=== PATIENT | male | born 1970 | race Caucasian/White ===

== ENCOUNTER 2024-04-01 12:22 | Inpatient (IN) | payer OTHER ==
[2024-04-01 13:11] VITALS: BMI 27.1
[2024-04-01] MEDS ORDERED: NALOXONE (NARCAN) HCL 4 MG/0.1 ML SPRAY NS PRN (14:17)
[2024-04-01] MEDS ORDERED: LOPERAMIDE HCL 2 MG CAPSULE PO PRN (14:17)
[2024-04-01] MEDS ORDERED: BENZOCAINE/MENTHOL (CHLORASEPTIC ) LOZENGE MM PRN (14:17)
[2024-04-01] MEDS ORDERED: DICYCLOMINE HCL 10 MG CAPSULE PO PRN (14:17)
[2024-04-01] MEDS ORDERED: guaiFENesin 600 MG TABLET.ER (FP) PO PRN (14:17)
[2024-04-01] MEDS ORDERED: NALOXONE (NYS OPIOID OVERDOSE PROGRAM) 4 MG/0.1 ML SPRAY NS PRN (14:17)
[2024-04-01] MEDS ORDERED: BISMUTH SUBSALICYLATE 524 MG/30 ML PO PRN (14:17)
[2024-04-01] MEDS ORDERED: NICOTINE 21 MG/24 HOURS TOPICAL PATCH TD PRN (14:17)
[2024-04-01] MEDS ORDERED: POLYETHYLENE GLYCOL (HEALTHYLAX) 3350 17 GM PACKET PO PRN (14:17)
[2024-04-01] MEDS ORDERED: ACETAMINOPHEN 325 MG TABLET (FP) PO PRN (14:17)
[2024-04-01] MEDS ORDERED: MAG HYDROX/AL HYDROX/SIMETH 30 ML UNIT-DOSE CUP PO PRN (14:17)
[2024-04-01] MEDS ORDERED: BENZONATATE 200 MG CAPSULE PO PRN (14:17)
[2024-04-01] MEDS ORDERED: NICOTINE POLACRILEX 4 MG GUM BUC ONE (15:12)
[2024-04-01] MEDS: NICOTINE POLACRILEX 4 MG GUM BUC PRN (15:13)
[2024-04-01] MEDS ORDERED: IBUPROFEN 400 MG TABLET (FP) PO ONE (15:32)
[2024-04-01] MEDS: IBUPROFEN 400 MG TABLET (FP) PO PRN (15:34)
[2024-04-01] MEDS ORDERED: chlordiazePOXIDE HCL 25 MG CAPSULE ONE (16:01)
[2024-04-01] MEDS: chlordiazePOXIDE HCL 25 MG CAPSULE PO SCH (16:06)
[2024-04-01] MEDS: METHOCARBAMOL 500 MG TABLET PO PRN (17:30)
[2024-04-01] MEDS: chlordiazePOXIDE HCL 25 MG CAPSULE PO PRN (19:38)
[2024-04-01] MEDS: QUEtiapine FUMARATE 100 MG TABLET (FP) PO ONE (22:03)
[2024-04-01] MEDS: THIAMINE 100 MG TABLET PO SCH (22:03)
[2024-04-01] MEDS: MELATONIN 5 MG TABLETS PO SCH (22:03)
[2024-04-01] MEDS: FLU VACCINE (FLULAVAL) PF 45 MCG/0.5 ML SYRINGE 2024-2025 IM ONE (22:04)
[2024-04-02] MEDS: methaDONE 40 MG, methaDONE 30 MG PO ONE (05:50)
[2024-04-02] MEDS: PRENATAL VITAMINS W/ FOLIC ACID TABLET (FP) PO SCH (10:11)
[2024-04-02] MEDS ORDERED: ESCITALOPRAM OXALATE 10 MG TABLET ONE (13:04)
[2024-04-02] MEDS: ESCITALOPRAM OXALATE 20 MG TABLET PO SCH (13:10)
[2024-04-02] MEDS: diazePAM 5 MG TABLET PO SCH (17:02)
[2024-04-02] MEDS: MAGNESIUM HYDROX 2400MG/30ML ORAL SUSPENSION 30 ML CUP PO PRN (18:31)
[2024-04-02] MEDS: diazePAM 5 MG TABLET PO PRN (20:06)
[2024-04-02] MEDS: ALBUTEROL SO4 HFA INHALER IH PRN (20:10)
[2024-04-02] MEDS: MIRTAZAPINE 15 MG TABLET (FP) PO SCH (22:30)
[2024-04-02] MEDS: QUEtiapine FUMARATE 200 MG TABLET PO SCH (22:30)
[2024-04-03] MEDS ORDERED: chlordiazePOXIDE HCL 25 MG CAPSULE PO SCH (05:00)
[2024-04-03] MEDS: methaDONE HCL 10 MG TABLET (FOR DETOX USE ONLY) PO ONE (05:34)
[2024-04-03] MEDS ORDERED: ESCITALOPRAM OXALATE 10 MG TABLET ONE (10:26)
[2024-04-03] MEDS: GABAPENTIN 300 MG CAPSULE PO SCH (22:02)
[2024-04-04] MEDS ORDERED: chlordiazePOXIDE HCL 10 MG CAPSULE PO PRN
[2024-04-04] MEDS ORDERED: chlordiazePOXIDE HCL 10 MG CAPSULE PO SCH (05:00)
[2024-04-04] MEDS: diazePAM 5 MG TABLET PO SCH (05:33)
[2024-04-04] MEDS: methaDONE HCL 40 MG DISPERSABLE TABLET PO ONE (05:33)
[2024-04-04] MEDS ORDERED: methaDONE 40 MG, methaDONE 10 MG PO ONE (06:00)
[2024-04-04] MEDS ORDERED: methaDONE HCL 10 MG TABLET PO PRN (06:00)
[2024-04-04] MEDS ORDERED: ESCITALOPRAM OXALATE 10 MG TABLET ONE (09:07)
[2024-04-04] MEDS: BUPRENORPHINE/NALOXONE 0.5 MG/0.125 MG FILM SL ONE ×2 (09:10→22:40)
[2024-04-05] MEDS ORDERED: chlordiazePOXIDE HCL 10 MG CAPSULE PO SCH (05:00)
[2024-04-05] MEDS: diazePAM 5 MG TABLET PO SCH (05:50)
[2024-04-05] MEDS ORDERED: methaDONE HCL 40 MG DISPERSABLE TABLET PO ONE (06:00)
[2024-04-05] MEDS ORDERED: ESCITALOPRAM OXALATE 10 MG TABLET ONE (10:03)
[2024-04-05] MEDS: BUPRENORPHINE/NALOXONE 0.5 MG/0.125 MG FILM SL SCH (10:05)
[2024-04-05] MEDS: diazePAM 5 MG TABLET PO PRN (12:40)
[2024-04-05] MEDS: IBUPROFEN 600 MG TABLET (FP) PO PRN (17:16)
[2024-04-06] MEDS ORDERED: chlordiazePOXIDE HCL 10 MG CAPSULE PO ONE (05:00)
[2024-04-06] MEDS: diazePAM 5 MG TABLET PO ONE (05:50)
[2024-04-06] MEDS ORDERED: ESCITALOPRAM OXALATE 10 MG TABLET ONE (09:27)
[2024-04-06] MEDS: BUPRENORPHINE/NALOXONE 2 MG/0.5 MG FILM PACKET SL SCH (09:30)
[2024-04-06] MEDS: amLODIPine BESYLATE 10 MG TABLET (FP) PO SCH (09:45)
[2024-04-06] MEDS: BUPRENORPHINE/NALOXONE 2 MG/0.5 MG FILM PACKET SL ONE (12:08)
[2024-04-06] MEDS: diazePAM 5 MG TABLET PO PRN (14:50)
[2024-04-06 15:45] LABS: POTASSIUM 4.5 mmol/L (3.5-5.1)
[2024-04-06 16:00] LABS: CALCIUM 8.9 mg/dL (8.5-10.1)
[2024-04-06 16:01] LABS: BLOOD UREA NITROGEN 10.3 mg/dL (7-18)
[2024-04-06 16:04] LABS: CREATININE 0.9 mg/dL (0.55-1.3)
[2024-04-06] MEDS: cloNIDine HCL 0.1 MG TABLET PO PRN (17:46)
[2024-04-07] MEDS: diazePAM 5 MG TABLET PO PRN (06:37)
[2024-04-07] MEDS ORDERED: ESCITALOPRAM OXALATE 10 MG TABLET ONE (09:36)
[2024-04-07] MEDS: BUPRENORPHINE/NALOXONE 4 MG/1 MG FILM PACKET SL SCH (09:38)
[2024-04-07 17:37] LABS: BASO % 0.8 % (0-2.0); EOS % 4.3 % (0-4.5); HEMATOCRIT 43.2 % (35.4-49); HEMOGLOBIN 14.3 GM/dL (11.7-16.9); LYMPH % 29.2 % (8-40); MCH 30.2 pg (25.7-33.7); MEAN CELL VOLUME 91.5 fl (80-96); MEAN PLT VOLUME 8.1 fl (7.5-11.1); MONO % 6.7 % (3.8-10.2); PLATELET COUNT 364 10^3/uL (134-434); RBC 4.72 M/mm3 (4.00-5.60); RDW 15.7 % (11.9-15.9); WHITE BLOOD COUNT 9.2 K/mm3 (4.0-10.0)
[2024-04-07] MEDS: ONDANSETRON *ODT* 4 MG TABLET SL PRN (22:02)
[2024-04-08] MEDS ORDERED: ESCITALOPRAM OXALATE 10 MG TABLET ONE (09:19)
[2024-04-08] MEDS: BUPRENORPHINE/NALOXONE 8 MG/2 MG FILM PACKET SL SCH (09:23)
[2024-04-08 09:30] VITALS: RESP 18
[2024-04-08 13:13] VITALS: BP 134/89; PULSE 96; TEMP 97.7
[2024-04-09] MEDS ORDERED: BUPRENORPHINE/NALOXONE 8 MG/2 MG FILM PACKET SL SCH (10:00)
== END 2024-04-08 14:41 | disposition other institution (70) | DRG 773 ==
LOC: YASAS 12:22 → Y6N 15:01
PROVIDERS: ADMIT Neuromusculoskeletal Medicine & OMM; ATTEND Neuromusculoskeletal Medicine & OMM
PROC: HZ2ZZZZ Detoxification Services for Substance Abuse Treatment (ICD-10-PCS; principal; 2024-04-01)
DX: F11.23 Opioid dependence with withdrawal (principal); F10.230 Alcohol dependence with withdrawal, uncomplicated; F13.20 Sedative, hypnotic or anxiolytic dependence, uncomplicated; F12.20 Cannabis dependence, uncomplicated; F17.210 Nicotine dependence, cigarettes, uncomplicated; F25.1 Schizoaffective disorder, depressive type; F31.9 Bipolar disorder, unspecified; F19.282 Other psychoactive substance dependence with psychoactive substance-induced sleep disorder; F19.280 Other psychoactive substance dependence with psychoactive substance-induced anxiety disorder; I10 Essential (primary) hypertension; M54.50 Low back pain, unspecified; G89.29 Other chronic pain; Z62.810 Personal history of physical and sexual abuse in childhood; Z86.19 Personal history of other infectious and parasitic diseases; Z88.0 Allergy status to penicillin
CPT/HCPCS: 36415; 80048; 80305; 85025; 87811; 93005; 93010; Q0162

== ENCOUNTER 2024-04-08 14:48 | Inpatient (IN) | payer OTHER ==
[2024-04-08 15:22] VITALS: BMI 27.1
[2024-04-08] MEDS ORDERED: NALOXONE (NARCAN) HCL 4 MG/0.1 ML SPRAY NS PRN (17:01)
[2024-04-08] MEDS ORDERED: BENZONATATE 200 MG CAPSULE PO PRN (17:01)
[2024-04-08] MEDS ORDERED: MAGNESIUM HYDROX 2400MG/30ML ORAL SUSPENSION 30 ML CUP PO PRN (17:01)
[2024-04-08] MEDS ORDERED: MAG HYDROX/AL HYDROX/SIMETH 30 ML UNIT-DOSE CUP PO PRN (17:01)
[2024-04-08] MEDS ORDERED: guaiFENesin 600 MG TABLET.ER (FP) PO PRN (17:01)
[2024-04-08] MEDS ORDERED: NALOXONE HCL 0.4 MG/ML VIAL IVPUSH PRN (17:01)
[2024-04-08] MEDS ORDERED: LOPERAMIDE HCL 2 MG CAPSULE PO PRN (17:01)
[2024-04-08] MEDS ORDERED: POLYETHYLENE GLYCOL (HEALTHYLAX) 3350 17 GM PACKET PO PRN (17:01)
[2024-04-08] MEDS ORDERED: IBUPROFEN 400 MG TABLET (FP) PO PRN (17:01)
[2024-04-08] MEDS: hydrOXYzine PAMOATE 25 MG CAPSULE (FP) PO PRN (19:21)
[2024-04-08] MEDS: GABAPENTIN 300 MG CAPSULE PO SCH (21:35)
[2024-04-08] MEDS: BUPRENORPHINE/NALOXONE 8 MG/2 MG FILM PACKET SL SCH (21:35)
[2024-04-08] MEDS: MELATONIN 5 MG TABLETS PO SCH (21:35)
[2024-04-08] MEDS: THIAMINE 100 MG TABLET PO SCH (21:35)
[2024-04-08] MEDS: QUEtiapine FUMARATE 200 MG TABLET PO ONE (21:35)
[2024-04-09] MEDS: PRENATAL VITAMINS W/ FOLIC ACID TABLET (FP) PO SCH (09:09)
[2024-04-09] MEDS: amLODIPine BESYLATE 10 MG TABLET (FP) PO SCH (09:09)
[2024-04-09] MEDS ORDERED: ESCITALOPRAM OXALATE 10 MG TABLET ONE (10:18)
[2024-04-09] MEDS: ESCITALOPRAM OXALATE 20 MG TABLET PO SCH (10:19)
[2024-04-09] MEDS: METHOCARBAMOL 500 MG TABLET PO PRN (20:11)
[2024-04-09] MEDS: QUEtiapine FUMARATE 200 MG TABLET PO SCH (21:09)
[2024-04-09] MEDS: MIRTAZAPINE 15 MG TABLET (FP) PO SCH (21:09)
[2024-04-10] MEDS ORDERED: ONDANSETRON *ODT* 4 MG TABLET SL PRN (09:22)
[2024-04-10] MEDS: methaDONE HCL 40 MG DISPERSABLE TABLET PO SCH (15:07)
[2024-04-10] MEDS: IBUPROFEN 600 MG TABLET (FP) PO PRN (17:08)
[2024-04-11] MEDS: NICOTINE 7 MG/24 HOURS TOPICAL PATCH TD SCH (13:07)
[2024-04-11] MEDS: NICOTINE 21 MG/24 HOURS TOPICAL PATCH TD SCH (13:20)
[2024-04-11] MEDS ORDERED: hydrOXYzine PAMOATE 50 MG CAPSULE (FP) PO PRN (17:55)
[2024-04-12] MEDS: methaDONE 40 MG, methaDONE 10 MG PO ONE (05:33)
[2024-04-12] MEDS ORDERED: methaDONE HCL 40 MG DISPERSABLE TABLET PO ONE (06:00)
[2024-04-12] MEDS ORDERED: ESCITALOPRAM OXALATE 10 MG TABLET ONE (08:56)
[2024-04-13] MEDS: methaDONE 40 MG, methaDONE 20 MG PO ONE (05:36)
[2024-04-13] MEDS ORDERED: methaDONE HCL 10 MG TABLET PO ONE (06:00)
[2024-04-13] MEDS ORDERED: ESCITALOPRAM OXALATE 10 MG TABLET ONE (09:23)
[2024-04-14] MEDS: methaDONE 40 MG, methaDONE 30 MG PO ONE (05:36)
[2024-04-14] MEDS ORDERED: methaDONE HCL 10 MG TABLET PO ONE (06:00)
[2024-04-14] MEDS: ACAMPROSATE CALCIUM 333 MG TABLET.DR PO SCH (14:38)
[2024-04-14] MEDS: GABAPENTIN 400 MG CAPSULE PO SCH (21:18)
[2024-04-15] MEDS: methaDONE HCL 40 MG DISPERSABLE TABLET PO SCH (05:31)
[2024-04-16] MEDS ORDERED: ESCITALOPRAM OXALATE 10 MG TABLET ONE (09:32)
[2024-04-18] MEDS: methaDONE 40 MG, methaDONE 30 MG PO SCH (05:46)
[2024-04-18] MEDS: ACETAMINOPHEN 325 MG TABLET (FP) PO PRN (05:46)
[2024-04-18] MEDS ORDERED: methaDONE HCL 40 MG DISPERSABLE TABLET PO SCH (06:00)
[2024-04-18] MEDS ORDERED: ESCITALOPRAM OXALATE 10 MG TABLET ONE (09:17)
[2024-04-19] MEDS ORDERED: ESCITALOPRAM OXALATE 10 MG TABLET ONE (09:25)
[2024-04-19 11:27] LABS: POTASSIUM 4.1 mmol/L (3.5-5.1)
[2024-04-19 11:29] LABS: INR 1.03 (0.83-1.09); PROTHROMBIN TIME (PATIENT) 11.6 SEC (9.7-13.0)
[2024-04-19 11:37] LABS: ALBUMIN 3.5 g/dl (3.4-5.0); CALCIUM 8.3 mg/dL (8.5-10.1); MAGNESIUM 2.1 mg/dL (1.8-2.4)
[2024-04-19 11:42] LABS: BILIRUBIN,TOTAL 0.3 mg/dL (0.2-1)
[2024-04-19 11:43] LABS: CREATININE 0.8 mg/dL (0.55-1.3)
[2024-04-19] MEDS ORDERED: GABAPENTIN 400 MG CAPSULE PO SCH (12:36)
[2024-04-19] MEDS: GABAPENTIN 300 MG CAPSULE PO SCH (14:17)
[2024-04-19] MEDS: ALBUTEROL SO4 HFA INHALER IH PRN (21:12)
[2024-04-19] MEDS: BUDESONIDE/FORMETEROL FUMARATE 80/4.5 mcg INHALER IH SCH (21:13)
[2024-04-20] MEDS ORDERED: methaDONE HCL 40 MG DISPERSABLE TABLET PO SCH (06:00)
[2024-04-20] MEDS: methaDONE 40 MG, methaDONE 20 MG PO SCH (06:13)
[2024-04-20] MEDS ORDERED: ESCITALOPRAM OXALATE 10 MG TABLET ONE (09:02)
[2024-04-23] MEDS: methaDONE 40 MG, methaDONE 10 MG PO SCH (05:29)
[2024-04-23] MEDS ORDERED: methaDONE HCL 40 MG DISPERSABLE TABLET PO SCH (06:00)
[2024-04-23] MEDS ORDERED: ESCITALOPRAM OXALATE 10 MG TABLET ONE (08:56)
[2024-04-25] MEDS: methaDONE HCL 40 MG DISPERSABLE TABLET PO SCH (05:29)
[2024-04-25] MEDS: ALBUTEROL SO4 2.5/IPRATROPIUM 0.5 INH SOL 3 ML VIAL.NEB. NEB ONE (07:21)
[2024-04-25] MEDS: ALBUTEROL SO4 0.083% IH SOL 2.5 MG/3 ML VIAL.NEB. NEB PRN (14:26)
[2024-04-25] MEDS: METHOCARBAMOL 500 MG TABLET PO PRN (21:13)
[2024-04-25] MEDS: cloNIDine HCL 0.1 MG TABLET PO PRN (23:16)
[2024-04-26] MEDS: methaDONE HCL 10 MG TABLET PO SCH (05:37)
[2024-04-26] MEDS: BENZOCAINE/MENTHOL (CHLORASEPTIC ) LOZENGE MM PRN (06:21)
[2024-04-26] MEDS ORDERED: ESCITALOPRAM OXALATE 10 MG TABLET ONE (08:39)
[2024-04-26] MEDS: methaDONE HCL 10 MG TABLET PO ONE (09:52)
[2024-04-27] MEDS: methaDONE 40 MG, methaDONE 10 MG PO SCH (05:25)
[2024-04-27] MEDS ORDERED: methaDONE HCL 10 MG TABLET PO SCH (06:00)
[2024-04-27] MEDS ORDERED: ESCITALOPRAM OXALATE 10 MG TABLET ONE (08:36)
[2024-04-28] MEDS ORDERED: ESCITALOPRAM OXALATE 10 MG TABLET ONE (09:00)
[2024-04-29] MEDS ORDERED: ESCITALOPRAM OXALATE 10 MG TABLET ONE (09:00)
[2024-04-29] MEDS ORDERED: ALBUTEROL SO4 0.083% IH SOL 2.5 MG/3 ML VIAL.NEB. NEB PRN (12:42)
[2024-04-30] MEDS ORDERED: ESCITALOPRAM OXALATE 10 MG TABLET ONE (09:22)
[2024-05-01] MEDS ORDERED: ESCITALOPRAM OXALATE 10 MG TABLET ONE (09:09)
[2024-05-02 09:10] VITALS: RESP 18
[2024-05-03 06:18] VITALS: TEMP 98
[2024-05-03 09:05] VITALS: BP 128/75; PULSE 95
[2024-05-03] MEDS: NALOXONE (NYS OPIOID OVERDOSE PROGRAM) 4 MG/0.1 ML SPRAY NS SCH (09:45)
== END 2024-05-03 09:43 | disposition home or self-care (01) | DRG 772 ==
LOC: YASAS 14:48 → Y3NR 14:51 → Y3W 04-10 13:21
PROVIDERS: ADMIT Psychiatry & Neurology Pain Medicine; ATTEND Psychiatry & Neurology Pain Medicine
PROC: HZ42ZZZ Group Counseling for Substance Abuse Treatment, Cognitive-Behavioral (ICD-10-PCS; principal; 2024-04-08)
DX: F11.20 Opioid dependence, uncomplicated (principal); F10.20 Alcohol dependence, uncomplicated; F13.20 Sedative, hypnotic or anxiolytic dependence, uncomplicated; F12.20 Cannabis dependence, uncomplicated; F17.210 Nicotine dependence, cigarettes, uncomplicated; F19.282 Other psychoactive substance dependence with psychoactive substance-induced sleep disorder; F41.9 Anxiety disorder, unspecified; F31.9 Bipolar disorder, unspecified; J44.9 Chronic obstructive pulmonary disease, unspecified; M54.50 Low back pain, unspecified; G89.29 Other chronic pain; R60.0 Localized edema; Z86.19 Personal history of other infectious and parasitic diseases
CPT/HCPCS: 36415; 71045-TC-FY; 80053; 80305; 82652; 82962; 83735; 85610; 86803; 87522; 94640

== ENCOUNTER 2024-06-02 13:56 | Inpatient (IN) | payer OTHER ==
[2024-06-02 15:15] VITALS: BMI 27.8
[2024-06-02] MEDS ORDERED: MAGNESIUM HYDROX 2400MG/30ML ORAL SUSPENSION 30 ML CUP PO PRN (15:56)
[2024-06-02] MEDS ORDERED: IBUPROFEN 400 MG TABLET (FP) PO PRN (15:56)
[2024-06-02] MEDS ORDERED: DICYCLOMINE HCL 10 MG CAPSULE PO PRN (15:56)
[2024-06-02] MEDS ORDERED: guaiFENesin 600 MG TABLET.ER (FP) PO PRN (15:56)
[2024-06-02] MEDS ORDERED: NICOTINE POLACRILEX 2 MG GUM BUC PRN (15:56)
[2024-06-02] MEDS ORDERED: NALOXONE (NARCAN) HCL 4 MG/0.1 ML SPRAY NS PRN (15:56)
[2024-06-02] MEDS ORDERED: ACETAMINOPHEN 325 MG TABLET (FP) PO PRN (15:56)
[2024-06-02] MEDS ORDERED: BENZOCAINE/MENTHOL (CHLORASEPTIC ) LOZENGE MM PRN (15:56)
[2024-06-02] MEDS ORDERED: LOPERAMIDE HCL 2 MG CAPSULE PO PRN (15:56)
[2024-06-02] MEDS ORDERED: NICOTINE POLACRILEX 2 MG LOZENGE BC PRN (15:56)
[2024-06-02] MEDS ORDERED: BISMUTH SUBSALICYLATE 524 MG/30 ML PO PRN (15:56)
[2024-06-02] MEDS ORDERED: MAG HYDROX/AL HYDROX/SIMETH 30 ML UNIT-DOSE CUP PO PRN (15:56)
[2024-06-02] MEDS ORDERED: POLYETHYLENE GLYCOL (HEALTHYLAX) 3350 17 GM PACKET PO PRN (15:56)
[2024-06-02] MEDS ORDERED: BENZONATATE 200 MG CAPSULE PO PRN (15:56)
[2024-06-02] MEDS ORDERED: hydrOXYzine PAMOATE 25 MG CAPSULE (FP) PO ONE (17:03)
[2024-06-02] MEDS: hydrOXYzine PAMOATE 25 MG CAPSULE (FP) PO PRN (17:07)
[2024-06-02] MEDS ORDERED: ONDANSETRON *ODT* 4 MG TABLET ONE (18:54)
[2024-06-02] MEDS: ONDANSETRON *ODT* 4 MG TABLET SL PRN (18:56)
[2024-06-02] MEDS: IBUPROFEN 600 MG TABLET (FP) PO PRN (19:57)
[2024-06-02] MEDS: THIAMINE 100 MG TABLET PO SCH (22:46)
[2024-06-02] MEDS: MELATONIN 5 MG TABLETS PO SCH (22:46)
[2024-06-02] MEDS: METHOCARBAMOL 500 MG TABLET PO PRN (22:46)
[2024-06-03] MEDS ORDERED: ALBUTEROL SO4 HFA INHALER IH PRN (04:23)
[2024-06-03] MEDS ORDERED: methaDONE HCL 10 MG TABLET PO SCH (09:15)
[2024-06-03] MEDS: methaDONE 40 MG, methaDONE 10 MG PO SCH (09:31)
[2024-06-03] MEDS: amLODIPine BESYLATE 10 MG TABLET (FP) PO SCH (09:32)
[2024-06-03] MEDS: PRENATAL VITAMINS W/ FOLIC ACID TABLET (FP) PO SCH (09:32)
[2024-06-03] MEDS: BUDESONIDE/FORMETEROL FUMARATE 80/4.5 mcg INHALER IH SCH (09:34)
[2024-06-03] MEDS: diazePAM 5 MG TABLET PO SCH (10:04)
[2024-06-03] MEDS ORDERED: ESCITALOPRAM OXALATE 10 MG TABLET ONE (11:17)
[2024-06-03] MEDS: ESCITALOPRAM OXALATE 20 MG TABLET PO SCH (11:20)
[2024-06-03] MEDS: MIRTAZAPINE 15 MG TABLET (FP) PO SCH (22:39)
[2024-06-03] MEDS: QUEtiapine FUMARATE 200 MG TABLET PO SCH (22:39)
[2024-06-04] MEDS ORDERED: ESCITALOPRAM OXALATE 10 MG TABLET ONE (10:09)
[2024-06-05] MEDS: diazePAM 5 MG TABLET PO SCH (05:34)
[2024-06-05] MEDS ORDERED: ESCITALOPRAM OXALATE 10 MG TABLET ONE (09:16)
[2024-06-05] MEDS: methaDONE HCL 10 MG TABLET PO ONE (14:22)
[2024-06-06] MEDS: diazePAM 5 MG TABLET PO SCH (05:33)
[2024-06-06] MEDS ORDERED: ESCITALOPRAM OXALATE 10 MG TABLET ONE (09:10)
[2024-06-06] MEDS: methaDONE 40 MG, methaDONE 30 MG PO ONE (09:18)
[2024-06-06] MEDS ORDERED: methaDONE HCL 10 MG TABLET PO ONE (10:00)
[2024-06-06] MEDS: NALOXONE (NYS OPIOID OVERDOSE PROGRAM) 4 MG/0.1 ML SPRAY NS SCH (12:02)
[2024-06-06 13:42] LABS: HEMATOCRIT 39.3 % (35.4-49); MCH 29.7 pg (25.7-33.7); MCHC 33.1 g/dl (32.0-35.9); MEAN CELL VOLUME 89.5 fl (80-96); MEAN PLT VOLUME 7.9 fl (7.5-11.1); PLATELET COUNT 443 10^3/uL (134-434); RBC 4.39 M/mm3 (4.00-5.60); RDW 16.5 % (11.9-15.9); WHITE BLOOD COUNT 9.4 K/mm3 (4.0-10.0)
[2024-06-06 13:46] LABS: CHLORIDE 103 mmol/L (98-107); POTASSIUM 4.4 mmol/L (3.5-5.1); SODIUM 142 mmol/L (136-145)
[2024-06-06 13:54] LABS: ALBUMIN 3.4 g/dl (3.4-5.0); ANION GAP 7 mmol/L (4-13); BLOOD UREA NITROGEN 14.4 mg/dL (7-18); CO2 32 mmol/L (21-32)
[2024-06-06 13:55] LABS: GLUCOSE,RANDOM 137 mg/dL (74-106); SGOT/AST 16 U/L (15-37); SGPT/ALT 29 U/L (13-61)
[2024-06-06 13:56] LABS: CREATININE 0.9 mg/dL (0.55-1.3)
[2024-06-06 13:57] LABS: BILIRUBIN,TOTAL 0.2 mg/dL (0.2-1); TOT PROT 6.9 g/dl (6.4-8.2)
[2024-06-06 13:58] LABS: ALK PHOS 82 U/L (45-117)
[2024-06-07] MEDS: diazePAM 5 MG TABLET PO ONE (05:59)
[2024-06-07] MEDS ORDERED: ESCITALOPRAM OXALATE 10 MG TABLET ONE (09:01)
[2024-06-07] MEDS: methaDONE HCL 40 MG DISPERSABLE TABLET PO ONE (09:02)
[2024-06-07 12:33] VITALS: BP 132/76; PULSE 76; RESP 16; TEMP 98
== END 2024-06-07 15:33 | disposition other institution (70) | DRG 773 ==
LOC: YASAS 13:56 → Y6N 19:32
PROVIDERS: ADMIT Allergy & Immunology; ATTEND Surgery
PROC: HZ2ZZZZ Detoxification Services for Substance Abuse Treatment (ICD-10-PCS; principal; 2024-06-02)
DX: F11.23 Opioid dependence with withdrawal (principal); F10.230 Alcohol dependence with withdrawal, uncomplicated; F17.210 Nicotine dependence, cigarettes, uncomplicated; F19.282 Other psychoactive substance dependence with psychoactive substance-induced sleep disorder; F31.9 Bipolar disorder, unspecified; F43.10 Post-traumatic stress disorder, unspecified; I10 Essential (primary) hypertension; J45.909 Unspecified asthma, uncomplicated; M54.50 Low back pain, unspecified; G89.29 Other chronic pain; Z86.19 Personal history of other infectious and parasitic diseases; Z62.810 Personal history of physical and sexual abuse in childhood; Z99.89 Dependence on other enabling machines and devices
CPT/HCPCS: 36415; 80053; 80307; 85027; 86780; Q0162

== ENCOUNTER 2024-06-07 15:42 | Inpatient (IN) | payer OTHER ==
[2024-06-07] MEDS ORDERED: BENZONATATE 200 MG CAPSULE PO PRN (18:10)
[2024-06-07] MEDS ORDERED: MAG HYDROX/AL HYDROX/SIMETH 30 ML UNIT-DOSE CUP PO PRN (18:10)
[2024-06-07] MEDS ORDERED: guaiFENesin 600 MG TABLET.ER (FP) PO PRN (18:10)
[2024-06-07] MEDS ORDERED: NALOXONE (NARCAN) HCL 4 MG/0.1 ML SPRAY NS PRN (18:10)
[2024-06-07] MEDS ORDERED: LOPERAMIDE HCL 2 MG CAPSULE PO PRN (18:10)
[2024-06-07] MEDS ORDERED: NALOXONE HCL 0.4 MG/ML VIAL IVPUSH PRN (18:10)
[2024-06-07] MEDS ORDERED: ACETAMINOPHEN 325 MG TABLET (FP) PO PRN (18:10)
[2024-06-07] MEDS ORDERED: MAGNESIUM HYDROX 2400MG/30ML ORAL SUSPENSION 30 ML CUP PO PRN (18:10)
[2024-06-07] MEDS ORDERED: hydrOXYzine PAMOATE 25 MG CAPSULE (FP) PO PRN (18:10)
[2024-06-07] MEDS ORDERED: IBUPROFEN 400 MG TABLET (FP) PO PRN (18:10)
[2024-06-07] MEDS ORDERED: POLYETHYLENE GLYCOL (HEALTHYLAX) 3350 17 GM PACKET PO PRN (18:10)
[2024-06-07] MEDS ORDERED: P-EPHED 60MG/TRIPROLIDI 2.5MG TABLET PO PRN (18:10)
[2024-06-07] MEDS ORDERED: ALBUTEROL SO4 HFA INHALER IH PRN (18:11)
[2024-06-07] MEDS: BUDESONIDE/FORMETEROL FUMARATE 80/4.5 mcg INHALER IH SCH (21:57)
[2024-06-07] MEDS: MIRTAZAPINE 15 MG TABLET (FP) PO SCH (21:58)
[2024-06-07] MEDS: THIAMINE 100 MG TABLET PO SCH (21:59)
[2024-06-07] MEDS: QUEtiapine FUMARATE 200 MG TABLET PO SCH (21:59)
[2024-06-07] MEDS: MELATONIN 5 MG TABLETS PO SCH (21:59)
[2024-06-08] MEDS: methaDONE HCL 40 MG DISPERSABLE TABLET PO SCH (05:48)
[2024-06-08] MEDS: PRENATAL VITAMINS W/ FOLIC ACID TABLET (FP) PO SCH (09:14)
[2024-06-08] MEDS: ESCITALOPRAM OXALATE 20 MG TABLET PO SCH (11:00)
[2024-06-08] MEDS: busPIRone HCL 5 MG TABLET PO SCH (14:04)
[2024-06-08] MEDS: IBUPROFEN 600 MG TABLET (FP) PO PRN (21:03)
[2024-06-09] MEDS: GABAPENTIN 300 MG CAPSULE PO SCH (13:26)
[2024-06-11] MEDS: METHOCARBAMOL 500 MG TABLET PO PRN (10:57)
[2024-06-13] MEDS: NICOTINE POLACRILEX 2 MG GUM BUC PRN (14:16)
[2024-06-16] MEDS: amLODIPine BESYLATE 2.5 MG TABLET (FP) PO SCH (14:43)
[2024-06-19] MEDS: BENZOCAINE/MENTHOL (CHLORASEPTIC ) LOZENGE MM PRN (09:57)
[2024-06-19] MEDS: GABAPENTIN 300 MG CAPSULE PO SCH (14:51)
[2024-06-20] MEDS: amLODIPine BESYLATE 5 MG TABLET (FP) PO SCH (10:28)
[2024-06-20] MEDS: hydrOXYzine PAMOATE 50 MG CAPSULE (FP) PO PRN (11:47)
[2024-06-20] MEDS: busPIRone HCL 10 MG TABLET (FP) PO SCH (14:14)
[2024-06-20] MEDS: NICOTINE POLACRILEX 2 MG LOZENGE BC PRN (14:15)
[2024-06-27] MEDS ORDERED: BENZONATATE 200 MG CAPSULE PO PRN (10:57)
[2024-06-27] MEDS ORDERED: OXYMETAZOLINE 0.05% NASAL SOLUTION 15 ML BOTTLE NS PRN (10:57)
[2024-06-27] MEDS ORDERED: guaiFENesin 600 MG TABLET.ER (FP) PO PRN (10:57)
[2024-06-27] MEDS ORDERED: BENZOCAINE 20 % GEL TUBE MM PRN (10:58)
[2024-06-27] MEDS: CHLORHEXIDINE GLUCONATE 0.12% 15ML CUP MM SCH (12:19)
[2024-06-27] MEDS: AZITHROMYCIN 250 MG TABLET PO ONE (12:19)
[2024-06-28] MEDS: AZITHROMYCIN 250 MG TABLET PO SCH (10:19)
[2024-07-05 06:27] VITALS: TEMP 98
[2024-07-05 09:11] VITALS: BP 142/90; PULSE 105; RESP 17
[2024-07-05] MEDS: NALOXONE (NYS OPIOID OVERDOSE PROGRAM) 4 MG/0.1 ML SPRAY NS SCH (09:12)
[2024-07-05] MEDS ORDERED: QUEtiapine FUMARATE 200 MG TABLET PO SCH (22:00)
[2024-07-05] MEDS ORDERED: MIRTAZAPINE 15 MG TABLET (FP) PO SCH (22:00)
[2024-07-05] MEDS ORDERED: busPIRone HCL 10 MG TABLET (FP) PO SCH (22:00)
[2024-07-06] MEDS ORDERED: ESCITALOPRAM OXALATE 20 MG TABLET PO SCH (10:00)
== END 2024-07-05 09:15 | disposition home or self-care (01) | DRG 772 ==
LOC: YASAS 15:42 → Y3NR 15:44 → Y3W 06-08 10:51
PROVIDERS: ADMIT Allergy & Immunology; ATTEND Psychiatry & Neurology Pain Medicine
PROC: HZ42ZZZ Group Counseling for Substance Abuse Treatment, Cognitive-Behavioral (ICD-10-PCS; principal; 2024-06-07)
DX: F11.20 Opioid dependence, uncomplicated (principal); F10.20 Alcohol dependence, uncomplicated; F17.210 Nicotine dependence, cigarettes, uncomplicated; F19.282 Other psychoactive substance dependence with psychoactive substance-induced sleep disorder; F19.280 Other psychoactive substance dependence with psychoactive substance-induced anxiety disorder; F19.24 Other psychoactive substance dependence with psychoactive substance-induced mood disorder; F41.9 Anxiety disorder, unspecified; G47.00 Insomnia, unspecified; F43.10 Post-traumatic stress disorder, unspecified; I10 Essential (primary) hypertension; J45.909 Unspecified asthma, uncomplicated; J06.9 Acute upper respiratory infection, unspecified; M54.50 Low back pain, unspecified; G89.29 Other chronic pain; Z99.89 Dependence on other enabling machines and devices; Z86.19 Personal history of other infectious and parasitic diseases; Z88.0 Allergy status to penicillin
CPT/HCPCS: 0241U-QW; 82962

== ENCOUNTER 2024-07-05 13:49 | Inpatient (IN) | payer OTHER ==
[2024-07-05 14:08] VITALS: BMI 31.1
[2024-07-05] MEDS ORDERED: BENZONATATE 200 MG CAPSULE PO PRN (14:09)
[2024-07-05] MEDS ORDERED: MAGNESIUM HYDROX 2400MG/30ML ORAL SUSPENSION 30 ML CUP PO PRN (14:09)
[2024-07-05] MEDS ORDERED: NALOXONE HCL 0.4 MG/ML VIAL IVPUSH PRN (14:09)
[2024-07-05] MEDS ORDERED: IBUPROFEN 400 MG TABLET (FP) PO PRN (14:09)
[2024-07-05] MEDS ORDERED: NICOTINE POLACRILEX 2 MG GUM BUC PRN (14:09)
[2024-07-05] MEDS ORDERED: LOPERAMIDE HCL 2 MG CAPSULE PO PRN (14:09)
[2024-07-05] MEDS ORDERED: METHOCARBAMOL 500 MG TABLET PO PRN (14:09)
[2024-07-05] MEDS ORDERED: POLYETHYLENE GLYCOL (HEALTHYLAX) 3350 17 GM PACKET PO PRN (14:09)
[2024-07-05] MEDS ORDERED: MAG HYDROX/AL HYDROX/SIMETH 30 ML UNIT-DOSE CUP PO PRN (14:09)
[2024-07-05] MEDS ORDERED: IBUPROFEN 600 MG TABLET (FP) PO PRN (14:09)
[2024-07-05] MEDS ORDERED: NALOXONE (NARCAN) HCL 4 MG/0.1 ML SPRAY NS PRN (14:09)
[2024-07-05] MEDS ORDERED: guaiFENesin 600 MG TABLET.ER (FP) PO PRN (14:09)
[2024-07-05] MEDS ORDERED: BENZOCAINE/MENTHOL (CHLORASEPTIC ) LOZENGE MM PRN (14:09)
[2024-07-05] MEDS ORDERED: ACETAMINOPHEN 325 MG TABLET (FP) PO PRN (14:09)
[2024-07-05] MEDS ORDERED: NICOTINE POLACRILEX 2 MG LOZENGE BC PRN (14:09)
[2024-07-05] MEDS ORDERED: ALBUTEROL SO4 HFA INHALER IH PRN (14:11)
[2024-07-05] MEDS ORDERED: GABAPENTIN 100 MG CAPSULE ONE (15:34)
[2024-07-05] MEDS: GABAPENTIN 300 MG CAPSULE PO SCH (15:36)
[2024-07-05] MEDS: busPIRone HCL 10 MG TABLET (FP) PO SCH (16:01)
[2024-07-05] MEDS: BUDESONIDE/FORMETEROL FUMARATE 80/4.5 mcg INHALER IH SCH (21:10)
[2024-07-05] MEDS: MELATONIN 5 MG TABLETS PO SCH (21:11)
[2024-07-05] MEDS: MIRTAZAPINE 15 MG TABLET (FP) PO SCH (21:11)
[2024-07-05] MEDS: THIAMINE 100 MG TABLET PO SCH (21:11)
[2024-07-05] MEDS: QUEtiapine FUMARATE 200 MG TABLET PO SCH (21:11)
[2024-07-06 06:47] VITALS: BP 117/81; PULSE 73; RESP 16; TEMP 97.7
[2024-07-06] MEDS ORDERED: NALOXONE (NYS OPIOID OVERDOSE PROGRAM) 4 MG/0.1 ML SPRAY NS SCH (09:00)
[2024-07-06] MEDS ORDERED: PRENATAL VITAMINS W/ FOLIC ACID TABLET (FP) PO SCH (10:00)
[2024-07-09] MEDS ORDERED: NALOXONE (NYS OPIOID OVERDOSE PROGRAM) 4 MG/0.1 ML SPRAY NS SCH (12:15)
== END 2024-07-06 09:05 | disposition home or self-care (01) | DRG 772 ==
LOC: YASAS 13:49 → Y3NR 15:08
PROVIDERS: ADMIT Psychiatry & Neurology Pain Medicine; ATTEND Psychiatry & Neurology Pain Medicine
PROC: HZ42ZZZ Group Counseling for Substance Abuse Treatment, Cognitive-Behavioral (ICD-10-PCS; principal; 2024-07-05)
DX: F10.20 Alcohol dependence, uncomplicated (principal); F11.20 Opioid dependence, uncomplicated; F17.210 Nicotine dependence, cigarettes, uncomplicated; F19.282 Other psychoactive substance dependence with psychoactive substance-induced sleep disorder; F19.280 Other psychoactive substance dependence with psychoactive substance-induced anxiety disorder; F19.24 Other psychoactive substance dependence with psychoactive substance-induced mood disorder; F41.9 Anxiety disorder, unspecified; I10 Essential (primary) hypertension; J45.909 Unspecified asthma, uncomplicated; M54.50 Low back pain, unspecified; G89.29 Other chronic pain; Z99.89 Dependence on other enabling machines and devices; Z86.59 Personal history of other mental and behavioral disorders